=== PATIENT | female | born 1950 | race Two or more races ===

== ENCOUNTER 2022-02-22 05:49 | Inpatient (IN) | payer OTHER ==
[~2022-02-22] VITALS: Ht 154.9 cm; Wt 90.2 kg
[~2022-02-22 05:49] MED LIST: ALEN35TA18 PO; ATOR10TA PO; LEVO25TA6 PO; LISI-285 PO; METF-370 PO; POTA-220 PO
[2022-02-22] MEDS ORDERED: ceFAZolin 1GM/50ML 100 ML IV ONE (06:19)
[2022-02-22] MEDS ORDERED: IOHEXOL 300 MG/ML 100ML BOTTLE IJ ONE ×2 (06:41→07:13)
[2022-02-22] MEDS ORDERED: GELATIN 1 SPONGE SIZE 100 TOP ONE (06:41)
[2022-02-22] MEDS ORDERED: THROMBIN (BOVINE) 5000 UNIT SOL VIAL ONE (06:41)
[2022-02-22] MEDS ORDERED: MINERAL OIL TOPICAL 10ml TOP ONE (06:58)
[2022-02-22] MEDS ORDERED: fentaNYL CITRATE 100 MCG/2 ML VL ONE (07:44)
[2022-02-22] MEDS ORDERED: ROCURONIUM 10MG/ML 10ML VIAL IV ONE (07:45)
[2022-02-22] MEDS ORDERED: MIDAZOLAM HCL 2MG/2ML 2ml VIAL (1mg/ml) ONE (07:45)
[2022-02-22] MEDS ORDERED: LIDOCAINE 1% INJ PF 5ML AMP ONE (07:45)
[2022-02-22] MEDS ORDERED: PROPOFOL 10 MG/ML 20 ML IV ONE ×2 (07:46→11:36)
[2022-02-22] MEDS ORDERED: fentaNYL CITRATE 5 ML ONE ×2 (07:53→08:53)
[2022-02-22] MEDS ORDERED: ONDANSETRON HCL 4 MG/2 ML VIAL IV PRN (10:00)
[2022-02-22] MEDS ORDERED: HYDROmorphone HCL 2 MG/ML VL/or syr IV PRN ×2 (10:00)
[2022-02-22] MEDS ORDERED: SUGAMMADEX 200mg/2ml Vial (100MG/ML) IV ONE (10:07)
[2022-02-22] MEDS ORDERED: MILK OF MAGNESIA 30ML SUSP PO PRN (12:00)
[2022-02-22] MEDS ORDERED: ceFAZolin 1GM/50ML 50 ML IV SCH (12:00)
[2022-02-22] MEDS ORDERED: D5W/SOD CHL 0.45% 1,000 ML IV SCH (12:00)
[2022-02-22] MEDS ORDERED: MORPHINE SULFATE INJ 2 MG/ml SYRG IV PRN (12:00)
[2022-02-22] MEDS ORDERED: NITROGLYCERIN 0.4 MG SL TAB SL PRN (12:00)
[2022-02-22] MEDS ORDERED: ACETAMINOPHEN 325 MG TAB PO PRN (12:00)
[2022-02-22] MEDS ORDERED: ONDANSETRON HCL 4 MG/2 ML VIAL ONE (12:28)
[2022-02-22] MEDS ORDERED: MORPHINE SULFATE 4 MG/ML SYR/VIAL ONE (12:36)
[2022-02-22] MEDS ORDERED: MORPHINE SULFATE 4 MG/ML SYR/VIAL IV PRN (13:00)
[2022-02-22] MEDS: MECLIZINE HCL 25 MG TAB PO SCH ×2 (14:08→21:43)
[2022-02-22] MEDS: CYCLOBENZAPRINE HCL 10 MG TAB PO SCH ×2 (14:08→21:43)
[2022-02-22] MEDS: D5W/SOD CHL 0.45% 1,000 ML IV SCH (15:38)
[2022-02-22 15:52] VITALS: BP 90/54
[2022-02-22] MEDS: ceFAZolin 1GM/50ML 50 ML IV SCH (16:30)
[2022-02-22] MEDS: HYDROmorphone HCL 2 MG/ML VL/or syr IV PRN (17:30)
[2022-02-22 18:15] VITALS: BP 90/54
[2022-02-22] MEDS: HYDROcodone-ACET 10/325MG TAB PO PRN (21:43)
[2022-02-22 22:00] VITALS: BP 105/69
[2022-02-23] MEDS: ceFAZolin 1GM/50ML 50 ML IV SCH (00:09)
[2022-02-23] MEDS: D5W/SOD CHL 0.45% 1,000 ML IV SCH ×3 (00:09→21:15)
[2022-02-23] MEDS: HYDROcodone-ACET 10/325MG TAB PO PRN ×2 (03:39→12:48)
[2022-02-23 05:00] VITALS: BP 110/63
[2022-02-23] MEDS: MECLIZINE HCL 25 MG TAB PO SCH ×3 (06:10→21:50)
[2022-02-23] MEDS: CYCLOBENZAPRINE HCL 10 MG TAB PO SCH ×3 (06:10→21:51)
[2022-02-23 09:00] VITALS: BP 101/60
[2022-02-23 10:06] LABS: Basophils # (auto) 0 10 ^3/uL (0-0.2); Basophils % (auto) 0.2 % (0.0-2.0); Eosinophils # (auto) 0.1 10 ^3/uL (0-0.8); Hematocrit 31.1 % (36.0-46.0); Hemoglobin 10.6 g/dL (12.2-16.2); Lymphocytes # (auto) 1.3 10 ^3/uL (0.4-5.4); Lymphocytes % (auto) 17.2 % (10.0-50.0); Mean Corpuscular Hemoglobin 30.4 pg (28.0-32.0); Mean Corpuscular Volume 89.4 fL (80.0-100.0); Monocytes # (auto) 0.6 10 ^3/uL (0-1.3); Monocytes % (auto) 8.5 % (0.0-12.0); Neutrophils # (auto) 5.4 10 ^3/uL (1.6-8.6); Neutrophils % (auto) 73.1 % (37.0-80.0); Nucleated Red Blood Cells % 0.1 %; Red Blood Cells 3.48 10^6/uL (4.0-5.20); White Blood Cell 7.4 10^3/uL (4.4-10.8)
[2022-02-23 10:12] LABS: BUN/Creatinine Ratio 11.2; Calcium 7.8 mg/dL (8.5-10.1); Potassium 3.7 mmol/L (3.5-5.1)
[2022-02-23 13:00] VITALS: BP 105/53
[2022-02-23 17:00] VITALS: BP 105/60
[2022-02-23] MEDS ORDERED: DEXTROSE (50%) 50ML SYRG IV PRN (17:00)
[2022-02-23] MEDS: ACCU-CHEK COMFORT CURVE STRIP VI SCH ×2 (17:59→21:52)
[2022-02-23] MEDS: InsuLIN REG 1unit/0.01ml Soln (100units/ml) SC SCH ×2 (18:00→21:56)
[2022-02-23] MEDS: ATORVASTATIN 20 MG TAB PO SCH (21:51)
[2022-02-23] MEDS: HYDROmorphone HCL 2 MG/ML VL/or syr IV PRN (21:57)
[2022-02-23 22:00] VITALS: BP 102/61
[2022-02-24 05:00] VITALS: BP 111/63
[2022-02-24] MEDS: ACCU-CHEK COMFORT CURVE STRIP VI SCH ×4 (05:28→21:34)
[2022-02-24] MEDS: CYCLOBENZAPRINE HCL 10 MG TAB PO SCH ×3 (05:28→21:29)
[2022-02-24] MEDS: MECLIZINE HCL 25 MG TAB PO SCH ×3 (05:28→21:29)
[2022-02-24] MEDS: InsuLIN REG 1unit/0.01ml Soln (100units/ml) SC SCH ×4 (05:35→21:35)
[2022-02-24] MEDS: HYDROmorphone HCL 2 MG/ML VL/or syr IV PRN ×3 (05:39→21:36)
[2022-02-24] MEDS: LEVOTHYROXINE SODIUM 25 MCG TAB PO SCH (06:45)
[2022-02-24] MEDS: D5W/SOD CHL 0.45% 1,000 ML IV SCH (07:59)
[2022-02-24 09:00] VITALS: BP 105/58
[2022-02-24 13:00] VITALS: BP 111/67
[2022-02-24 17:00] VITALS: BP 113/61
[2022-02-24] MEDS: ATORVASTATIN 20 MG TAB PO SCH (21:29)
[2022-02-24 22:00] VITALS: BP 133/77
[2022-02-25 05:00] VITALS: BP 123/73
[2022-02-25] MEDS: ACCU-CHEK COMFORT CURVE STRIP VI SCH ×4 (05:32→21:37)
[2022-02-25] MEDS: LEVOTHYROXINE SODIUM 25 MCG TAB PO SCH (05:32)
[2022-02-25] MEDS: CYCLOBENZAPRINE HCL 10 MG TAB PO SCH ×3 (05:32→21:37)
[2022-02-25] MEDS: InsuLIN REG 1unit/0.01ml Soln (100units/ml) SC SCH ×4 (05:47→21:43)
[2022-02-25] MEDS: HYDROcodone-ACET 10/325MG TAB PO PRN (05:48)
[2022-02-25] MEDS: MECLIZINE HCL 25 MG TAB PO SCH ×3 (05:48→21:37)
[2022-02-25 09:18] VITALS: BP 131/73
[2022-02-25] MEDS: HYDROmorphone HCL 2 MG/ML VL/or syr IV PRN ×2 (11:55→21:36)
[2022-02-25 12:44] VITALS: BP 122/72
[2022-02-25 16:49] VITALS: BP 117/77
[2022-02-25] MEDS: ATORVASTATIN 20 MG TAB PO SCH (21:37)
[2022-02-25 22:00] VITALS: BP 121/76
[2022-02-26 05:00] VITALS: BP 133/86
[2022-02-26] MEDS ORDERED: ONDANSETRON HCL 4 MG/2 ML VIAL IV PRN (05:30)
[2022-02-26] MEDS: MECLIZINE HCL 25 MG TAB PO SCH ×3 (06:01→21:24)
[2022-02-26] MEDS: ACCU-CHEK COMFORT CURVE STRIP VI SCH ×4 (06:02→22:00)
[2022-02-26] MEDS: CYCLOBENZAPRINE HCL 10 MG TAB PO SCH ×3 (06:02→21:25)
[2022-02-26] MEDS: LEVOTHYROXINE SODIUM 25 MCG TAB PO SCH (06:02)
[2022-02-26] MEDS: InsuLIN REG 1unit/0.01ml Soln (100units/ml) SC SCH ×4 (06:03→21:30)
[2022-02-26] MEDS: HYDROmorphone HCL 2 MG/ML VL/or syr IV PRN ×3 (08:39→21:24)
[2022-02-26 09:00] VITALS: BP 116/82
[2022-02-26] MEDS ORDERED: PANTOPRAZOLE 40 MG/10 ML VIAL INJ IV SCH (10:00)
[2022-02-26 13:00] VITALS: BP 108/74
[2022-02-26 16:56] VITALS: BP 101/62
[2022-02-26] MEDS: ATORVASTATIN 20 MG TAB PO SCH (21:24)
[2022-02-26 21:36] VITALS: BP 102/62
[2022-02-27 04:43] VITALS: BP 107/70
[2022-02-27] MEDS: CYCLOBENZAPRINE HCL 10 MG TAB PO SCH ×2 (05:56→14:05)
[2022-02-27] MEDS: MECLIZINE HCL 25 MG TAB PO SCH ×2 (05:56→14:05)
[2022-02-27] MEDS: LEVOTHYROXINE SODIUM 25 MCG TAB PO SCH (05:56)
[2022-02-27] MEDS: ACCU-CHEK COMFORT CURVE STRIP VI SCH ×2 (05:57→12:07)
[2022-02-27] MEDS: InsuLIN REG 1unit/0.01ml Soln (100units/ml) SC SCH ×2 (05:58→12:15)
[2022-02-27] MEDS: HYDROmorphone HCL 2 MG/ML VL/or syr IV PRN ×2 (05:59→12:35)
[2022-02-27 08:00] VITALS: BP 102/69
[2022-02-27 12:00] VITALS: BP 92/55
[2022-02-27] MEDS ORDERED: Alendronate Sodium 35 MG PO SCH (15:15)
[2022-02-27 15:21] VITALS: BP 98/63
[2022-02-27 16:00] VITALS: BP 99/60
[2022-02-27] MEDS ORDERED: PATIENTS OWN MEDICATION (Atorvastatin Calcium (Lipitor) 10 MG) PO SCH (18:00)
[2022-02-27] MEDS ORDERED: HYDROCHLOROTHIAZIDE PO SCH (18:00)
[2022-02-27] MEDS ORDERED: LISINOPRIL PO SCH (18:00)
[2022-02-28] MEDS ORDERED: LEVOTHYROXINE SODIUM 25 MCG TAB PO SCH (07:00)
[2022-02-28] MEDS ORDERED: metFORMIN HYDROCHLORIDE 500 MG TAB PO SCH (07:00)
[2022-02-28] MEDS ORDERED: POTASSIUM CHL 20 Meq TABLET PO SCH (10:00)
== END 2022-02-27 17:18 | disposition home health service (06) | DRG 460 ==
LOC: SUR 05:49 → TELE 11:54 → TELE-CENTR 14:46
PROVIDERS: ADMIT Orthopaedic Surgery; ATTEND Internal Medicine
PROC: 0QU03JZ Supplement Lumbar Vertebra with Synthetic Substitute, Percutaneous Approach (ICD-10-PCS; 2022-02-22)
PROC: 0RGA07J Fusion of Thoracolumbar Vertebral Joint with Autologous Tissue Substitute, Posterior Approach, Anterior Column, Open Approach (ICD-10-PCS; 2022-02-22)
PROC: 0SG107J Fusion of 2 or more Lumbar Vertebral Joints with Autologous Tissue Substitute, Posterior Approach, Anterior Column, Open Approach (ICD-10-PCS; 2022-02-22)
PROC: 00NX0ZZ Release Thoracic Spinal Cord, Open Approach (ICD-10-PCS; 2022-02-22)
PROC: 00NY0ZZ Release Lumbar Spinal Cord, Open Approach (ICD-10-PCS; 2022-02-22)
PROC: 4A11X4G Monitoring of Peripheral Nervous Electrical Activity, Intraoperative, External Approach (ICD-10-PCS; 2022-02-22)
PROC: 0RG607J Fusion of Thoracic Vertebral Joint with Autologous Tissue Substitute, Posterior Approach, Anterior Column, Open Approach (ICD-10-PCS; principal; 2022-02-22 07:51)
PROC: 0QS03ZZ Reposition Lumbar Vertebra, Percutaneous Approach (ICD-10-PCS; 2022-02-22 07:51)
DX: M48.062 Spinal stenosis, lumbar region with neurogenic claudication (principal); M54.16 Radiculopathy, lumbar region; E66.9 Obesity, unspecified; E78.00 Pure hypercholesterolemia, unspecified; I10 Essential (primary) hypertension; I25.10 Atherosclerotic heart disease of native coronary artery without angina pectoris; S32.011G Stable burst fracture of first lumbar vertebra, subsequent encounter for fracture with delayed healing; E03.9 Hypothyroidism, unspecified; E11.51 Type 2 diabetes mellitus with diabetic peripheral angiopathy without gangrene; M81.0 Age-related osteoporosis without current pathological fracture; Z20.822 Contact with and (suspected) exposure to COVID-19; Z68.38 Body mass index [BMI] 38.0-38.9, adult
CPT/HCPCS: 36415; 76000; 80048; 82962; 85025; 85379; 86850; 86900; 86901; 97110; 97116; 97163; 97530; C9113; G0378; J0690; J1815; J2250; J2405; J2704